=== PATIENT | female | born 1990 | race Caucasian/White ===

== ENCOUNTER 2018-07-10 21:20 | Emergency (ER) | payer OTHER ==
[~2018-07-10] VITALS: Ht 162.6 cm; Wt 66.2 kg
[2018-07-10 21:21] VITALS: Ht 162.6 cm; Wt 66.2 kg
[2018-07-10 22:06] VITALS: BP 140/67
== END 2018-07-10 21:57 | disposition other institution (70) ==
LOC: ED 21:20
DX: Z02.89 Encounter for other administrative examinations (principal)